=== PATIENT | female | born 1975 | race Caucasian/White ===

== ENCOUNTER 2022-01-23 08:59 | Outpatient (CLI) | payer BC, SELFPAY ==
--- NOTE | 2022-01-23 09:15 | CRLHL7_ITS ---
For Patients: As a result of the Century Cures Act, medical imaging exams and procedure reports are released immediately into your electronic medical record. You may view this report before your referring provider. If you have questions, please contact your health care provider. BILATERAL SCREENING MAMMOGRAM WITH COMPUTER-AIDED DETECTION AND TOMOSYNTHESIS TECHNIQUE: CC and MLO views were obtained. These mammographic images have been obtained using full-field digital technique. These mammographic images were interpreted with the benefit of computer-aided detection. Breast Tomosynthesis was used in this interpretation. COMPARISON FILM: 11/16/20, 06/03/19 [place], 05/24/18 [place]. FINDINGS: The breasts are heterogeneously dense, which may obscure small masses IMPRESSION: There is no radiographic evidence for malignancy. ASSESSMENT: BI-RADS Category 2: Benign RECOMMENDATION: Routine screening mammogram in 1 year. A lay language report of this examination will be provided to the patient. Sony Dumont M.D. Diagnostic Radiologist [email or web address] KEEGAN/Dictated by: Sony Dumont MD @ 01/23/2022 12:39:00 PM (Electronically Signed)
== END 2022-01-23 09:00 | disposition home or self-care (01) ==
LOC: MAMMO 09:00
PROVIDERS: PCP Physician Assistant Medical; Visit Provider Physician Assistant Medical
DX: Z12.31 Encounter for screening mammogram for malignant neoplasm of breast (principal); R92.2 Inconclusive mammogram
CPT/HCPCS: 77063; 77067

== ENCOUNTER 2022-02-10 06:56 | Outpatient (CLI) | payer BC, SELFPAY ==
[2022-02-10 08:10] LABS: Hemoglobin* 12.7 gm/dL (12.0-16.0); Mean Corpuscular HGB Conc 33 gm/dL (32-36); Mean Corpuscular Hemoglobin 30 pg (26-34); Mean Corpuscular Volume 93 fL (80-100); Platelet Count* 164 K/uL (140-440)
[2022-02-10 08:13] LABS: Slide Review Reflex No
[2022-02-10 13:00] LABS: Albumin* 4.4 g/dL (3.3-5.0); Chloride* 106 mmol/L (96-114); Sodium* 136 mmol/L (135-149)
[2022-02-10 13:01] LABS: Potassium* 4.5 mmol/L (3.6-5.1)
[2022-02-10 13:02] LABS: Cholesterol* 207 mg/dL (90-199)
[2022-02-10 13:03] LABS: Alkaline Phosphatase* 68 U/L (40-150); Aspartate Amino Transferase* 24 U/L (12-35); Bilirubin Total* 0.6 mg/dL (0.1-1.5); Blood Urea Nitrogen* 14 mg/dL (5-24); Carbon Dioxide* 20 mmol/L (20-32); Creatinine* 0.8 mg/dL (0.5-1.5); Estimated Glomerular Filt Rate 91 ml/min; Glucose* 103 mg/dL (60-115); Total Protein* 7.1 g/dL (6.0-8.3)
[2022-02-10 13:04] LABS: Alanine Aminotransferase* 28 U/L (4-35); Calcium* 8.9 mg/dL (8.4-10.6); HDL Cholesterol* 47 mg/dL (>=50); LDL Cholesterol Calculated 132 mg/dL (<100); Triglycerides* 141 mg/dL (40-149)
[2022-02-10 14:21] LABS: Free T4 Free Thyroxine* 0.88 ng/dL (0.70-1.85)
== END 2022-02-10 06:57 | disposition home or self-care (01) ==
PROVIDERS: PCP Physician Assistant Medical; Visit Provider Physician Assistant Medical
DX: Z01.419 Encounter for gynecological examination (general) (routine) without abnormal findings (principal); E03.9 Hypothyroidism, unspecified; Z13.6 Encounter for screening for cardiovascular disorders
CPT/HCPCS: 80053; 80061; 84439; 84443; 85027

== ENCOUNTER 2022-04-07 13:12 | Outpatient (CLI) | payer BC, SELFPAY | END 2022-04-07 13:13 | disposition home or self-care (01) | PROVIDERS: PCP Physician Assistant Medical; Visit Provider Physician Assistant Medical | DX: E03.9 Hypothyroidism, unspecified (principal) | CPT/HCPCS: 84443 ==

== ENCOUNTER 2022-07-05 08:13 | Outpatient (CLI) | payer BC, SELFPAY | END 2022-07-05 08:14 | disposition home or self-care (01) | PROVIDERS: PCP Physician Assistant Medical; Visit Provider Physician Assistant Medical | DX: N93.9 Abnormal uterine and vaginal bleeding, unspecified (principal) | CPT/HCPCS: 84443 ==

== ENCOUNTER 2022-07-10 07:04 | Outpatient (CLI) | payer BC, SELFPAY ==
--- NOTE | 2022-07-10 07:15 | CRLHL7_ITS ---
For Patients: As a result of the Cures Act, medical imaging exams and procedure reports are released immediately into your electronic medical record. You may view this report before your referring provider. If you have questions, please contact your health care provider. INDICATION: VAGINAL BLEEDING 2YRS POST HYSTERECTOMY COMPARISON: none TECHNIQUE: 2D verdugo scale and color Doppler images were acquired of the pelvis using a transabdominal and transvaginal approach. FINDINGS: The uterus is absent. The ovaries are not visualized. There are no suspicious fluid collections within the cul-de-sac. IMPRESSION: No pelvic fluid collection. Dictated by Sony Dumont MD @ 07/10/2022 8:25:51 AM (Electronically Signed)
== END 2022-07-10 07:05 | disposition home or self-care (01) ==
LOC: US 07:05
PROVIDERS: PCP Physician Assistant Medical; Visit Provider Physician Assistant Medical
DX: N93.9 Abnormal uterine and vaginal bleeding, unspecified (principal)
CPT/HCPCS: 76830; 76856

== ENCOUNTER 2022-07-25 08:50 | Outpatient (CLI) | payer BC, SELFPAY | END 2022-07-25 08:51 | disposition home or self-care (01) | PROVIDERS: PCP Physician Assistant Medical; Visit Provider Obstetrics & Gynecology | DX: N93.9 Abnormal uterine and vaginal bleeding, unspecified (principal) | CPT/HCPCS: 87086 ==

== ENCOUNTER 2023-03-16 11:32 | Outpatient (CLI) | payer BC, SELFPAY ==
--- NOTE | 2023-03-16 12:42 | W.ANESCHARGE ---
Anesthesia Charges Start Date/Time Anesthesia Start Date: 03/16/23 Anesthesia Start Time: 12:15 Stop Date/Time Anesthesia Stop Date: 03/16/23 Anesthesia Stop Time: 12:38
--- NOTE | 2023-03-16 12:49 | W.ANESCHARGE ---
Anesthesia Charges Start Date/Time Anesthesia Start Date: 03/16/23 Anesthesia Start Time: 12:15 Stop Date/Time Anesthesia Stop Date: 03/16/23 Anesthesia Stop Time: 12:38
== END 2023-03-16 11:33 | disposition home or self-care (01) ==
LOC: OP CLINIC 11:32
PROVIDERS: PCP Physician Assistant Medical; Visit Provider Internal Medicine
DX: Z12.11 Encounter for screening for malignant neoplasm of colon (principal); Z80.0 Family history of malignant neoplasm of digestive organs
CPT/HCPCS: 00811; 00812; 45378; J2704

== ENCOUNTER 2023-03-22 14:26 | Outpatient (CLI) | payer BC, SELFPAY ==
--- NOTE | 2023-03-22 14:40 | CRLHL7_ITS ---
For Patients: As a result of the Cures Act, medical imaging exams and procedure reports are released immediately into your electronic medical record. You may view this report before your referring provider. If you have questions, please contact your health care provider. BILATERAL SCREENING MAMMOGRAM WITH COMPUTER-AIDED DETECTION AND TOMOSYNTHESIS TECHNIQUE: CC and MLO views were obtained. These mammographic images have been obtained using full-field digital technique. These mammographic images were interpreted with the benefit of computer-aided detection. Breast tomosynthesis was used in this interpretation. COMPARISON FILM: 01/23/22, 11/16/20, 06/03/19. FINDINGS: The breasts are heterogeneously dense, which may obscure small masses. IMPRESSION: There is no radiographic evidence for malignancy. ASSESSMENT: BI-RADS Category 2: Benign RECOMMENDATION: Routine screening mammogram in 1 year. A lay language report of this examination will be provided to the patient. MONICO MANJARREZ M.D. Diagnostic/Nuclear Medicine Radiologist [email or web address] Transcribed: 1:[address]/Dictated by: Monico Manjarrez MD @ 03/23/2023 8:52:00 AM (Electronically Signed)
== END 2023-03-22 14:27 | disposition home or self-care (01) ==
LOC: MAMMO 14:27
PROVIDERS: PCP Physician Assistant Medical; Visit Provider Physician Assistant Medical
DX: Z12.31 Encounter for screening mammogram for malignant neoplasm of breast (principal); R92.2 Inconclusive mammogram
CPT/HCPCS: 77063; 77067

== ENCOUNTER 2023-04-03 08:51 | Outpatient (CLI) | payer BC, SELFPAY | END 2023-04-03 08:52 | disposition home or self-care (01) | PROVIDERS: PCP Physician Assistant Medical; Visit Provider Physician Assistant Medical | DX: Z00.00 Encounter for general adult medical examination without abnormal findings (principal); E03.9 Hypothyroidism, unspecified; K21.9 Gastro-esophageal reflux disease without esophagitis; L65.9 Nonscarring hair loss, unspecified; N92.0 Excessive and frequent menstruation with regular cycle; N93.9 Abnormal uterine and vaginal bleeding, unspecified; Z13.6 Encounter for screening for cardiovascular disorders; Z13.29 Encounter for screening for other suspected endocrine disorder; Z13.21 Encounter for screening for nutritional disorder | CPT/HCPCS: 80053; 80061; 82306; 84443 ==

== ENCOUNTER 2024-03-26 10:01 | Outpatient (CLI) | payer OTHER, SELFPAY ==
--- NOTE | 2024-03-26 10:15 | CRLHL7_ITS ---
For Patients: As a result of the Century Cures Act, medical imaging exams and procedure reports are released immediately into your electronic medical record. You may view this report before your referring provider. If you have questions, please contact your health care provider. BILATERAL SCREENING MAMMOGRAM WITH COMPUTER-AIDED DETECTION AND TOMOSYNTHESIS TECHNIQUE: CC and MLO views were obtained. These mammographic images have been obtained using full-field digital technique. These mammographic images were interpreted with the benefit of computer-aided detection. Breast Tomosynthesis was used in this interpretation. COMPARISON FILM: 03/22/23, 01/23/22, 11/16/20. FINDINGS: There are scattered areas of fibroglandular density IMPRESSION: There is no radiographic evidence for malignancy. ASSESSMENT: BI-RADS Category 1: Negative RECOMMENDATION: Routine screening mammogram in 1 year. A lay language report of this examination will be provided to the patient. Sony Dumont M.D. Diagnostic Radiologist [email or web address] KEEGAN/Dictated by: Sony Dumont MD @ 03/28/2024 8:55:00 AM (Electronically Signed)
== END 2024-03-26 10:02 | disposition home or self-care (01) ==
LOC: MAMMO 10:02
PROVIDERS: PCP Physician Assistant Medical; Visit Provider Physician Assistant Medical
DX: Z12.31 Encounter for screening mammogram for malignant neoplasm of breast (principal)
CPT/HCPCS: 77063; 77067

== ENCOUNTER 2024-03-31 11:13 | Outpatient (CLI) | payer OTHER, SELFPAY | END 2024-03-31 11:14 | disposition home or self-care (01) | PROVIDERS: PCP Physician Assistant Medical; Visit Provider Physician Assistant Medical | DX: E03.9 Hypothyroidism, unspecified (principal); Z13.6 Encounter for screening for cardiovascular disorders | CPT/HCPCS: 80053; 80061; 84443 ==

== ENCOUNTER 2025-03-31 12:59 | Outpatient (CLI) | payer OTHER, SELFPAY ==
--- NOTE | 2025-03-31 13:20 | CRLHL7_ITS ---
For Patients: As a result of the Century Cures Act, medical imaging exams and procedure reports are released immediately into your electronic medical record. You may view this report before your referring provider. If you have questions, please contact your health care provider. BILATERAL DIGITAL SCREENING MAMMOGRAM WITH COMPUTER-AIDED DETECTION AND TOMOSYNTHESIS CLINICAL HISTORY: Routine screening exam. COMPARISON: 03/26/2024, 03/22/2023, 01/23/2022. TECHNIQUE: Digital mammogram in CC and MLO projections including computer-aided detection (CAD). Tomosynthesis was used in this interpretation. BREAST COMPOSITION: There are scattered areas of fibroglandular density. FINDINGS: RIGHT Breast: Punctate calcifications are present within the upper inner breast 7 cm from the nipple. LEFT Breast: No suspicious findings. IMPRESSION: RIGHT breast calcifications. RECOMMENDATIONS: Spot compression magnification views of the calcifications in the RIGHT breast in CC and ML projections. The [facility] will contact the patient. A lay language report of this examination will be provided to the patient. BI-RADS Category 0: Incomplete: Need Additional Imaging Evaluation Dictated by Sony Dumont MD @ 04/01/2025 1:01:55 PM mark/Dictated by: Sony Dumont MD @ 04/01/2025 1:01:00 PM (Electronically Signed)
== END 2025-03-31 13:00 | disposition home or self-care (01) ==
LOC: MAMMO 13:00
PROVIDERS: PCP Physician Assistant Medical; Visit Provider Physician Assistant Medical
DX: Z12.31 Encounter for screening mammogram for malignant neoplasm of breast (principal); R92.1 Mammographic calcification found on diagnostic imaging of breast
CPT/HCPCS: 77063; 77067

== ENCOUNTER 2025-04-03 07:31 | Outpatient (CLI) | payer OTHER, SELFPAY ==
--- NOTE | 2025-04-03 07:45 | CRLHL7_ITS ---
For Patients: As a result of the Cures Act, medical imaging exams and procedure reports are released immediately into your electronic medical record. You may view this report before your referring provider. If you have questions, please contact your health care provider. DIAGNOSTIC RIGHT BREAST MAMMOGRAM CLINICAL HISTORY: RIGHT breast calcification. COMPARISON: 03/31/2025, , 03/22/2023. TECHNIQUE: Digital RIGHT mammogram in 3 projections. BREAST COMPOSITION: There are scattered areas of fibroglandular density. FINDINGS: Additional mammogram images RIGHT breast submitted. Small cluster of slightly pleomorphic calcifications appear to be present within the upper inner quadrant 7 cm from the nipple. IMPRESSION: Indeterminate calcifications. RECOMMENDATIONS: Stereotactic biopsy should be considered. A lay language report of this examination will be provided to the patient. BI-RADS Category 4. Suspicious. Dictated by Sony Dumont MD @ 04/03/2025 9:47:42 AM JAMES/luis antonio DW/Dictated by: Sony Dumont MD @ 04/03/2025 9:47:00 AM (Electronically Signed)
== END 2025-04-03 07:32 | disposition home or self-care (01) ==
LOC: MAMMO 07:32
PROVIDERS: PCP Physician Assistant Medical; Visit Provider Physician Assistant Medical
DX: R92.1 Mammographic calcification found on diagnostic imaging of breast (principal); R92.8 Other abnormal and inconclusive findings on diagnostic imaging of breast
CPT/HCPCS: 77065; G0279

== ENCOUNTER 2025-04-14 08:37 | Outpatient (CLI) | payer OTHER, SELFPAY | END 2025-04-14 08:38 | disposition home or self-care (01) | LOC: NFLDREF 04-17 04:40 | PROVIDERS: PCP Physician Assistant Medical; Visit Provider Physician Assistant Medical | DX: R79.89 Other specified abnormal findings of blood chemistry (principal); E03.9 Hypothyroidism, unspecified | CPT/HCPCS: 80053; 80061; 82306; 84439; 84443 ==

== ENCOUNTER 2025-05-20 10:16 | Outpatient (CLI) | payer OTHER, SELFPAY ==
--- NOTE | 2025-05-20 10:30 | CRLHL7_ITS ---
For Patients: As a result of the Century Cures Act, medical imaging exams and procedure reports are released immediately into your electronic medical record. You may view this report before your referring provider. If you have questions, please contact your health care provider. DXA BONE MINERAL DENSITY STUDY Reason for exam: Unspecified menopausal and perimenopausal disorder. Current height (in): 66. Weight (lb): 224. Menopause age: 49. Ethnicity: White. 1. Have you had a previous hip or vertebral fracture? No. 2. Have you had any fractures during your adult life which did not result from significant trauma (e.g., auto accident)? No. 3. Did either of your parents have a hip fracture? Yes. 4. Do you smoke? No. 5. Have you ever taken Glucocorticoids? Yes. 6. Do you have rheumatoid arthritis? No. 7. Do you have secondary osteoporosis? No. 8. Do you drink 3 or more alcoholic drinks per day? No. 9. Are you being treated for osteoporosis? No. 10. Have you ever taken any of the following medications: Actonel, Evista, Fosamax, Miacalcin, Reclast, Boniva, Forteo, HRT (i.e. estrogen/hormone therapy), Protelos, Prolia, Vitamin D, Calcium, other ??? please specify. ANSWER: Yes, Vitamin D and Calcium. 11. Do you have any of the following medical conditions: Anorexia or bulimia, asthma or emphysema, end stage renal disease, hyperparathyroidism, any seizure disorders, cancer, inflammatory bowel diseases, hysterectomy, other ??? please specify. ANSWER: Yes, Hysterectomy. 12. What was your maximum height (inches)? 66. 13. Do you perform weight bearing exercise regularly? No. 14. Do you regularly consume dairy products? Yes. 15. Do you drink caffeinated beverages? Yes. 16. At what age did your period start? 10. 17. Are you premenopausal? No. 18. How many full-term pregnancies have you had? 2. 19. Have you ever missed your period for more than 6 months in a row (not including or menopause)? No. TECHNIQUE: Bone mineral density study was performed using the [employer]. FINDINGS: The results of the study expressed as bone mineral density (BMD) are as follows: Lumbar spine L1 to L4: BMD: 1.130 g/cm2. T-score: 0.8. Z-score: 1.6. Neck Left: BMD: 0.850 g/cm2. T-score: 0.0. Z-score: 0.8. Right: BMD: 0.968 g/cm2. T-score: 1.1. Z-score: 1.9. Total Left: BMD: 1.031 g/cm2. T-score: 0.7. Z-score: 1.2. Right: BMD: 1.094 g/cm2. T-score: 1.2. Z-score: 1.8. IMPRESSION: Normal bone density. *Comparison exams done prior to 11/2019 were performed on different unit, [employer]. Sony Dumont M.D. Diagnostic Radiologist [email or web address] JOHNNY/robi rosenbaum/Dictated by: Sony Dumont MD @ 05/20/2025 11:23:00 AM (Electronically Signed)
== END 2025-05-20 10:17 | disposition home or self-care (01) ==
LOC: RAD 10:17
PROVIDERS: PCP Physician Assistant Medical; Visit Provider Internal Medicine Hematology & Oncology
DX: N95.9 Unspecified menopausal and perimenopausal disorder (principal)
CPT/HCPCS: 77080